=== PATIENT | female | born 1965 ===

== ENCOUNTER 2016-12-30 13:33 | Emergency (ER) | payer BC ==
[2016-12-30 14:47] VITALS: BP 130/77
--- NOTE | 2016-12-30 15:20 | UC ---
Lower Extremity/Ankle HPI - HPI Summary HPI Summary: Left ball of the foot pain for the past few days. She has been excersizing and doing a walking routine. 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 No swelling, fever or redness. No diabetes. No trauma or acute injury. - History of Current Complaint Chief Complaint: UCLowerExtremity Stated Complaint: RIGHT FOOT AND LEG PAIN Time Seen by Provider: 12/30/16 14:41 Hx Obtained From: Patient Hx Last Menstrual Period: n/a Onset/Duration: Gradual Onset, Lasting Days Severity Initially: Moderate Severity Currently: Moderate Aggravating Factor(s): Standing, Ambulation Alleviating Factor(s): Rest, Elevation Able to Bear Weight: Yes - Risk Factors Gout Risk Factors: Age Over 40 - Allergies/Home Medications Allergies/Adverse Reactions: Allergies Allergy/AdvReac Type Severity Reaction Status Date / Time No Known Allergies Allergy Verified 12/30/16 14:47 Home Medications: Home Medications NK [No Home Medications Reported] 12/30/16 [History Confirmed 12/30/16] PMH/Surg Hx/FS Hx/Imm Hx Previously Healthy: Yes - Surgical History Surgical History: Yes Surgery Procedure, Year, and Place: kidney stone removal - Family History Known Family History: Positive: Other - no foot related disease. - Social History Alcohol Use: Occasionally Substance Use Type: None Smoking Status (MU): Never Smoked Tobacco - Immunization History Most Recent Influenza Vaccination: no Review of Systems Musculoskeletal: Arthralgia All Other Systems Reviewed And Are Negative: Yes Physical Exam Triage Information Reviewed: Yes Appearance: Well-Appearing, No Pain Distress, Well-Nourished Vital Signs: Initial Vital Signs Temp 97.9 F 12/30/16 14:42 Pulse 74 12/30/16 14:42 Resp 16 12/30/16 14:42 BP 130/77 12/30/16 14:42 Pulse Ox 97 12/30/16 14:42 Vital Signs Reviewed: Yes Eyes: Positive: Conjunctiva Clear Neck: Negative: Nuchal Rigidity Respiratory: Positive: No respiratory distress, No accessory muscle use. Negative: Respiratory distress Cardiovascular: Positive: Brisk Capillary Refill Abdomen Description: Negative: Distended Musculoskeletal Exam: Other - there is no redness, swelling or signs of inflammation of the left 1st MTP joint. There is no tenderness of the joint. There is no pain with toe extension but there is some pain with toe flexion. NO FB or redness. Lower Extremity Course/Dx - Course Course Of Treatment: We talked about otc nsaids, rest, podiatry, and wearing sneakers at work and at home. - Differential Dx/Diagnosis Provider Diagnoses: Left great toe pain. Discharge - Discharge Plan Condition: Good Disposition: HOME Patient Education Materials: Arthralgia (ED) Referrals: Callum Rivera DPM [Doctor of Podiatric Medicine] - 2 Days Additional Instructions: Wear sneakers at work and in the house for 1-2 weeks. Follow up with the ux developer.
== END 2016-12-30 15:24 | disposition home or self-care (01) ==
LOC: UCCORT 13:33
DX: M79.672 Pain in left foot (principal)
CPT/HCPCS: 99211; G0463